=== PATIENT | female | born 1950 | race Caucasian/White ===

== ENCOUNTER 2024-05-01 22:03 | Inpatient (IN) | payer OTHER, SELFPAY ==
[2024-05-01 16:51] VITALS: BP 123/76
[2024-05-01 17:09] LABS: % Basophils 0.5 % (0-2); % Eosinophils 0.7 % (0-6); % Immature Granulocytes 0.5 % (0-0.5); % Lymphocytes 12.9 % (20.5-51.1); % Monocytes 6.8 % (1.7-9.3); % Neutrophils 78.6 % (42.2-75.2); Absolute Basophils 0.1 10^3/uL (0-0.2); Absolute Eosinophils 0.1 10^3/uL (0-0.7); Absolute Immature Granulocytes 0.1 10^3/uL (0-0.05); Absolute Lymphocytes 1.3 10^3/uL (1.2-3.4); Absolute Monocytes 0.7 10^3/uL (0.1-0.6); Absolute Neutrophils 7.8 10^3/uL (1.4-6.5); Hematocrit 36.7 % (37.0-47.0); Hemoglobin 12.8 g/dL (12.0-16.0); Mean Corp Hgb Conc. 34.9 g/dL (33.0-37.0); Mean Corpuscular Hgb 31.1 pg (27.0-31.0); Mean Corpuscular Volume 89.3 fL (81.0-99.0); Mean Platelet Volume 10.3 fL (7.4-10.4); Nucleated Red Blood Cells % 0 %; Platelet Count 376 10^3/uL (130-400); Red Blood Cell Count 4.11 10^6/uL (4.20-5.40); Red Cell Dist. Width 12.7 % (11.5-14.5); White Blood Cell Count 9.9 10^3/uL (4.8-10.8)
[2024-05-01 17:45] LABS: ALT (SGPT) 21 U/L (0-35); AST (SGOT) 23 U/L (14-36); Albumin 4.5 g/dl (3.5-5.0); Alkaline Phosphatase 138 U/L (38-126); Blood Urea Nitrogen 23 mg/dl (7-17); Calcium 9.9 mg/dl (8.4-10.2); Carbon Dioxide 28 mmol/L (22-30); Chloride 96 mmol/L (98-107); Glucose 187 mg/dl (70-99); Lipase 112 U/L (23-300); Potassium 3.8 mmol/L (3.5-5.1); Sodium 136 mmol/L (135-145); Total Bilirubin 0.5 mg/dl (0.2-1.3); Total Protein 7.7 g/dl (6.3-8.2); eGFR 39.73
[2024-05-01 18:33] VITALS: BMI 23.8
--- NOTE | 2024-05-01 18:36 | ED.GENMED ---
History of Present Illness
General
Chief Complaint: Bowel Problem
Time Seen by Provider: 05/01/24 18:05
Travel History
Have you had any contact with someone who has COVID-19?: No
Do you have any symptoms of coronavirus? Fever > 100 degrees, chills, cough, shortness of breath, sore throat, loss of taste or smell, muscle aches, or headache?: No
History of Present Illness
History of Present Illness:
73 yo female w/ hx of CKD, PAF on Eliquis, HTN, HLD, and IDDM presents to the Emergency Department for evaluation of lower abd pain radiating to the low back ongoing for the past 3-4 days. Saw her PCP Thursday, was felt to constipated, was given stool
softeners and an enema w/o relief. Pain not present currently. No reported fevers, chills, sweats, N/V. Notes that she has not passed formed stool for 1 week, only small amount of liquid. No recent medication changes, not on opiate meds
Past History
Past History
ED Past Medical History: Arrthythmia (Atrial fibrillation), COPD, HTN, Hypercholesterolemia, NIDDM, Hypothyroidism and Psychiatric (Anxiety, Depression)
ED Past Surgical History: Appendectomy
Social History
Tobacco: Former smoker
Alcohol: None
Personal:
Living: with family
Review of Systems
Review of Systems
Allergies reviewed?: Yes
All Other Systems: ROS reviewed and negative except as documented in HPI and ROS
Phy Exam
Physical Exam
Physical Exam:
GEN: Well appearing, NAD, WDWN
HEENT: Oral mucosa moist, no scleral icterus
Cardiac: Regular rate and rhythm 4/6 holosystolic murmur
Lung: No respiratory distress, no tachypnea
Abd: Soft, non tender x 4 quadrants
MSK: No gross deformity or injuries
Skin: Good color, no pallor or jaundice, no rashes
Neuro: AO x3, moves all extremities freely
Psych: Calm, cooperative
Course
Orders/Labs/Results
Orders:
Orders
05/01/24 17:01
CMP [Comprehensive Metabolic Panel] Urgent
Complete Blood Count/With Diff Urgent
Lipase Urgent
05/01/24 18:21
CT Abd/Pel (IV only)-DH only Urgent
Comment:
Reason For Exam: lower abd pain/constipation
05/01/24 19:42
Urinalysis Reflex To Culture Urgent
Date Specimen was Collected: 05/01/24
Time Specimen was Collected: 18:22
Urine Microscopic Reflex Cult Urgent
05/01/24 20:02
HYDROmorphone [Dilaudid] 0.5 mg IV NOW STA
05/01/24 20:06
Lactic Acid Urgent
05/01/24 21:29
Admit/Transfer Patient As Directed
Co-Sign Provider:
Level of Care: Inpatient admission
Assign to:: Telemetry
Physician / Group: Zeyad
Diagnosis: Sigmoid Volvulus
Reason for Telemetry: Arrhythmia
Date to Stop Telemetry: 05/04/24
Time to Stop Telemetry: 11:00
Reason for Hospitalization: Sigmoid decompression
Expected length of stay greater than two midnights?: Yes
ELOS- Estimated Length of Stay in days: 3
I certify the patient meets the requirements for IP care: Yes
05/01/24 21:43
Acetaminophen 1000MG/100Ml [Ofirmev] 1,000 mg in 100 ml IV ONCE
Acetaminophen IV Indication:: Ileus/Delayed Bowel Func.
HYDROmorphone [Dilaudid] 0.5 mg IV NOW STA
05/01/24 21:47
Code Status As Directed
Resuscitation Status: Full Code
05/04/24 11:00
DC Protocol for Telemetry ONCE
Abnormal Lab Results
05/01/24 05/01/24
17:01 19:42
RBC 4.11 L 10^6/uL
(4.20-5.40)
Hct 36.7 L %
(37.0-47.0)
MCH 31.1 H pg
(27.0-31.0)
Abs Immat Gran (auto) 0.1 H 10^3/uL
(0-0.05)
Absolute Neuts (auto) 7.8 H 10^3/uL
(1.4-6.5)
Absolute Monos (auto) 0.7 H 10^3/uL
(0.1-0.6)
Neutrophils % 78.6 H %
(42.2-75.2)
Lymphocytes % 12.9 L %
(20.5-51.1)
Chloride 96 L mmol/L
(98-107)
BUN 23 H mg/dl
(7-17)
Creatinine 1.4 H mg/dL
(0.6-1.0)
Glucose 187 H mg/dl
(70-99)
Alkaline Phosphatase 138 H U/L
(38-126)
Leukocyte Esterase Rfl Trace A
(Negative)
05/01/24 17:01
05/01/24 17:01
Vital Signs
Initial and Last Documented VS:
Initial Vital Signs
Temp Pulse Resp BP Pulse Ox
99.0 F 87 16 123/76 96
05/01/24 16:51 05/01/24 16:51 05/01/24 16:51 05/01/24 16:51 05/01/24 16:51
Last Documented Vital Signs
Temp Pulse Resp BP Pulse Ox
99.0 F 95 12 138/87 93
05/01/24 16:51 05/01/24 22:45 05/01/24 22:45 05/01/24 22:43 05/01/24 22:45
MDM/Problems Addressed
MDM/Problems Addressed:
73 yo female presents w/ difficulty moving bowels and abd distention, found to have sigmoid volvulus. Reassuringly she has no pneumatosis and lactic acid is normal. Case with d/w colorectal surgery as well as GI, GI will take pt for urgent
endoscopic decompression. Kcentra required to reverse anticoagulant effect of Eliquis. Will be admitted to hospitalist service for further management
*Critical Care Note
Total Time (30-74mins, 75-104mins- exclusive of procedures): 40 minutes
comment:
Critical care time: 40 mins
Critical care time was exclusive of: Separately billable procedures, treating other patients, and teaching time
Critical care was necessary to treat or prevent imminent or life-threatening deterioration of the following conditions: large bowel obstruction
Critical care time spent personally by me on the following activities:
[x] Review of old charts
[x] Obtaining history from patient or surrogate
[x] Ordering and review of the laboratory studies
[x] Ordering and review of radiographic studies
[x] Ordering and performing treatments and interventions
[x] Patient patient's response to treatment
[x] Development of treatment plan with patient or surrogate
[x] Discussion with consultants
Update Note
Update Note:
2029: hyaqu message sent to GI battery charger conveyor line for case review.
2038: hyaqu message sent to colorectal surgery. Surgeon battery charger conveyor line recommends urgent sigmoid decompression by GI tonlaine, will consult for definitive sigmoidectomy in the future
2055: Called back by GI, case reviewed. Will plan for urgent sigmoid decompression, will give Kcentra in anticipation of urgent procedure in the setting of Eliquis use.
ED Attending Note
-
Portions of this chart may have been created with voice recognition software.� Occasional wrong word or��sound alike� substitutions may have occurred due to the inherent limitations of voice recognition software.
Discharge Plan
Departure
Patient Disposition: Admit
Date of Disposition: 05/01/24
Time of Disposition: 21:00
Admit to: IMU
Presentation/result/management discussed w/ accepting MD/DO: Hospitalist
Discharge Problem:
Sigmoid volvulus
Interventions
Interventions:
*Risk Screen - Suicide Last Done: 05/01/24 18:34
*General Assessment Last Done: 05/01/24 18:34
*Neglect/Abuse Screening Last Done: 05/01/24 18:34
ED- Fall Risk Assessment Last Done: 05/01/24 18:33
*ED COVID-19 Vaccine History Last Done: 05/01/24 16:51
*Nursing Disposition Last Done: 05/01/24 23:00
OO-Lokvpm-Kytrewrbnx Assessment Last Done: 05/01/24 18:35
Discharge Date and Time
Discharge Date/Time: 05/01/24 23:01
[2024-05-01 19:52] LABS: Urine Albumin Trace (Neg - Trace); Urine Bilirubin Negative (Negative); Urine Character Clear (Clear); Urine Color Yellow; Urine Glucose Negative (Negative); Urine Ketone Negative (Negative); Urine Leukocyte Trace (Negative); Urine Nitrite Negative (Negative); Urine Occult Blood Negative (Negative); Urine Urobilinogen Negative (Neg - 1+)
[2024-05-01 20:03] LABS: Urine Red Blood Cell None Seen /HPF (0-2)
[2024-05-01] MEDS: DILAUDID 0.5 MG IV ×2 (20:10→21:51)
[2024-05-01 20:27] LABS: Lactic Acid 1.3 mmol/L (0.7-2.0)
[2024-05-01 21:03] VITALS: BP 137/96
[2024-05-01] MEDS: OFIRMEV 100 IV (21:51)
--- NOTE | 2024-05-01 21:55 | HPS.HSE ---
Addendum entered and electronically signed by Dominic Jeffers DO 05/01/24 23:00:
Patient seen and examined independently. Agree with findings and plan as set forth by Mariam Porter PA-C.
Patient is a 73y F with PMH significant for A-Fib, DM-II and CKD who presents to ED complaining of abdominal pain. Patient notes abdominal pain that has been present for about one week. She had been having difficulty moving her bowels and was
seen by her PCP and treated for constipation without improvement in her symptoms. Her last BM is now > 1 week ago. She presented to the ED today for evaluation and CT reveals evidence of sigmoid volvulus.
Ass:
Sigmoid Volvulus
Large Bowel Obstruction secondary to the above
Paroxysmal Atrial Fibrillation
Benign Hypertension
DM-II
CKD III
Hypothyroidism
Anxiety / Depression
Plan:
Admit for further evaluation and treatment.
To GI lab this evening for sigmoidoscopy and decompression.
GI / Colorectal Surgery evaluations.
Hold Eliquis acutely.
Resume other usual PO meds in AM if able.
Patient may require eventual sigmoid resection for definitive therapy.
Original Note:
Family Physician
-
Family Physician: Jere Luna
Chief Complaint
-
Abdominal Pain
History of Present Illness
This is a 73 year old female with past medical history of A-Fib on anticoagulation, DM and CKD who presents to the emergency department with abdominal pain. The patient reports she has had lower abdominal pain that radiates around her left side to
her buttocks for a week. She reports she went to her primary care physician on Thursday04/26/24 who treated her for constipation. She notes her last bowel movement was about a week and a half ago. She states she is only able to pass clear liquids.
The patient reports the pain comes and goes but notes today the pain was worsening, prompting her to present to the emergency department. The patient rates her pain at 7/10. She denies nausea and vomiting. Patient denies fever, sweats, and chills.
Medical History
Past Medical History
Past Medical History: Reports Other
Additional Past Medical History:
Paroxysmal Atrial Fibrillation
Essential Hypertension
Hyperlipidemia
Diabetes Mellitus, Type II
CKD Stage III
COPD
Hypothyroidism
Anxiety/Depression
Overactive Bladder
Past Surgical History: Reports Other
Additional Past Surgical History:
Appendectomy
Social History
Tobacco: Non-smoker
Alcohol: None
Drug: None
Family History
Family History: Not pertinent
Allergies / Home Medications
Allergies reflects when Allergies were last updated in [facility].
Home Medications with original date entered in [facility]
Allergy/Medication List:
Allergies
Allergy/AdvReac Type Severity Reaction Status Date / Time
amoxicillin Allergy Hives Verified 03/13/23 05:30
Penicillins Allergy Rash Verified 03/13/23 05:30
Home Medications
apixaban 5 mg tablet (Eliquis) 5 mg PO BID Arrhythmia 12/06/21
bupropion HCl 300 mg 24 hr tablet, extended release 300 mg PO DAILY Depression 12/06/21
diltiazem HCl 60 mg tablet 60 mg PO BID Arrhythmia 12/06/21
glimepiride 4 mg tablet 8 mg PO DAILY Diabetes 12/06/21
insulin glargine 100 unit/mL (3 mL) subcutaneous pen (Lantus Solostar U-100 Insulin) 6 units SC HS Diabetes 12/06/21
magnesium oxide 400 mg PO DAILY Supplement 12/06/21
mecobalamin (vitamin B12) 1,000 mcg chewable tablet (B12 Active) 1,000 mcg PO DAILY Supplement 12/06/21
simvastatin 20 mg tablet 20 mg PO QPM High cholesterol 12/06/21
sodium bicarbonate 650 mg tablet 650 mg PO BID Electrolyte Repletion 12/06/21
tolterodine 4 mg capsule,extended release 24 hr 4 mg PO DAILY Urinary issue ##0 12/06/21
ergocalciferol (vitamin D2) 1,250 mcg (50,000 unit) capsule 1,250 mcg PO PAYTON Supplement 10/30/22
levothyroxine 137 mcg tablet 127 mcg PO DAILY Thyroid 10/30/22
semaglutide 0.25 mg or 0.5 mg (2 mg/1.5 mL) subcutaneous pen injector (Ozempic) 0.5 mg SC PAYTON Diabetes 10/30/22
acetaminophen 325 mg tablet 650 mg (2 x 325 mg) PO Q6H PRN fever or pain 14 days #30 tabs 11/06/22
escitalopram oxalate 10 mg tablet (Lexapro) 20 mg PO DAILY 05/01/24
Review of Systems
-
A 12 point ROS was completed and negative except as noted: Yes
Constitutional: Denies Fever or Chills
Respiratory: Denies Cough or Trouble Breathing
Cardiac: Denies Chest Pain or Palpitations
Abdomen/GI: Reports See HPI
Physical Exam
Vital Signs
Vital Signs
Temp Pulse Resp BP Pulse Ox
99.0 F 90 12 137/96 91
05/01/24 16:51 05/01/24 21:30 05/01/24 21:30 05/01/24 21:03 05/01/24 21:30
Physical Exam
General: Well Developed, Well Nourished and Other (Appears in pain)
HEENT: Anicteric and Moist mucous membranes
Respiratory: Clear and Non Labored Respirations
Cardiac: S1/S2, Regular Rhythm and Murmur (III/ LAZARUS)
GI: Soft and Other (High pitched tinkling bowel sounds; Fullness noted in left lower quadrant; Moderate tenderness to palpation )
Musculoskeletal: No Clubbing, No Cyanosis and No Edema
Skin: Warm and Dry
Neuro: Awake, Alert, Oriented and Nonfocal/grossly intact
Laboratory Results
-
05/01/24 17:01
05/01/24 17:01
Laboratory Results
Lactic Acid 1.3 mmol/L (0.7-2.0) 05/01/24 20:06
Total Bilirubin 0.5 mg/dl (0.2-1.3) 05/01/24 17:01
AST 23 U/L (14-36) 05/01/24 17:01
ALT 21 U/L (0-35) 05/01/24 17:01
Alkaline Phosphatase 138 U/L (38-126) H 05/01/24 17:01
Lipase 112 U/L (23-300) 05/01/24 17:01
Data Reviewed
-
Lab Data: Labs Reviewed by me
Impression/Plan
-
Sigmoid Volvulus
-GI planning for urgent sigmoid depression this evening
-Consult Colorectal Surgery
-Continue NPO/IVFs
Paroxysmal Atrial Fibrillation
-Hold Eliquis for anticipated procedure
-Continue diltiazem for rate control
Essential Hypertension
-Continue diltiazem
Hyperlipidemia
-Hold simvastatin
Diabetes Mellitus, Type II
-Hold Lantus and Glimepiride
-Monitor sugars and continue coverage insulin
CKD Stage III
-Hold sodium bicarbonate
-Monitor creatinine and electrolytes
Hypothyroidism
-Hold levothyroxine
Anxiety/Depression
-Continue bupropion and escitalopram
DVT Proph: SCDs
Code Status: Full Code
[2024-05-01 22:00] VITALS: BP 154/93
[2024-05-01 22:30] LABS: Glucose - Point of Care 137 mg/dl (70-99)
[2024-05-01] MEDS: ZOFRAN 4 MG IV (22:41)
[2024-05-01 22:43] VITALS: BP 138/87
[2024-05-01] MEDS: KCENTRA 120 UNIT IV (22:52)
--- NOTE | 2024-05-01 23:09 | CON.GI ---
Consultation
-
Date/Time Consultation Requested: 05/01/2024
Date/Time Consultation Performed: 05/01/2024
Requesting Provider: ED
Performing Provider: Bhavesh HERNANDEZ
Reason for Consultation: sigmoid volvulus
Medical History
Chief Complaint / HPI
Chief Complaint: abdominal pain
History of Present Illness:
73y F with PMHx of A-Fib on eliquis , DM-II and CKD who presents to ED c/o of abdominal pain.poor historian. Patient has been having abdominal pain for one week. She had been having difficulty moving her bowels and was seen by her PCP and
treated for constipation .since pain is worsen today came to ED. vomited once prior to ED admission .
CT abd/ pel
IMPRESSION:
Findings consistent with sigmoid volvulus. No bowel wall thickening or pneumatosis. No inflammatory soft tissue stranding.
Past Medical History
Past Medical History: Other ( A-Fib on eliquis , DM-II and CKD)
Allergies / Home Medications
Allergy/AdvReac Type Severity Reaction Status Date / Time
amoxicillin Allergy Hives Verified 03/13/23 05:30
Penicillins Allergy Rash Verified 03/13/23 05:30
�Medication �Instructions �Recorded
apixaban 5 mg tablet (Eliquis) 5 mg PO BID Arrhythmia 12/06/21
bupropion HCl 300 mg 24 hr tablet, 300 mg PO DAILY Depression 12/06/21
extended release
diltiazem HCl 60 mg tablet 60 mg PO BID Arrhythmia 12/06/21
glimepiride 4 mg tablet 8 mg PO DAILY Diabetes 12/06/21
insulin glargine 100 unit/mL (3 6 units SC HS Diabetes 12/06/21
mL) subcutaneous pen (Lantus
Solostar U-100 Insulin)
magnesium oxide 400 mg PO DAILY Supplement 12/06/21
mecobalamin (vitamin B12) 1,000 1,000 mcg PO DAILY Supplement 12/06/21
mcg chewable tablet (B12 Active)
simvastatin 20 mg tablet 20 mg PO QPM High cholesterol 12/06/21
sodium bicarbonate 650 mg tablet 650 mg PO BID Electrolyte Repletion 12/06/21
tolterodine 4 mg capsule,extended 4 mg PO DAILY Urinary issue ##0 12/06/21
release 24 hr
ergocalciferol (vitamin D2) 1,250 1,250 mcg PO PAYTON Supplement 10/30/22
mcg (50,000 unit) capsule
levothyroxine 137 mcg tablet 127 mcg PO DAILY Thyroid 10/30/22
semaglutide 0.25 mg or 0.5 mg (2 0.5 mg SC PAYTON Diabetes 10/30/22
mg/1.5 mL) subcutaneous pen
injector (Ozempic)
acetaminophen 325 mg tablet 650 mg (2 x 325 mg) PO Q6H PRN 11/06/22
fever or pain 14 days #30 tabs
escitalopram oxalate 10 mg tablet 20 mg PO DAILY 05/01/24
(Lexapro)
Review of Systems
-
All other systems: A 12 pt ROS was Negative except as stated above in HPI
Vital Signs
Temp Pulse Resp BP Pulse Ox
99.0 F 95 12 138/87 93
05/01/24 16:51 05/01/24 22:45 05/01/24 22:45 05/01/24 22:43 05/01/24 22:45
Physical Exam
Exam
General: Well Developed
Respiratory: Clear
Cardiac: S1/S2
GI: Soft, Non Tender and Distended
Results
WBC 9.9 10^3/uL (4.8-10.8) 05/01/24 17:01
Hgb 12.8 g/dL (12.0-16.0) 05/01/24 17:01
Hct 36.7 % (37.0-47.0) L 05/01/24 17:01
MCV 89.3 fL (81.0-99.0) 05/01/24 17:01
Plt Count 376 10^3/uL (130-400) 05/01/24 17:01
Absolute Neuts (auto) 7.8 10^3/uL (1.4-6.5) H 05/01/24 17:01
Sodium 136 mmol/L (135-145) 05/01/24 17:01
Potassium 3.8 mmol/L (3.5-5.1) 05/01/24 17:01
Chloride 96 mmol/L (98-107) L 05/01/24 17:01
Carbon Dioxide 28 mmol/L (22-30) 05/01/24 17:01
BUN 23 mg/dl (7-17) H 05/01/24 17:01
Creatinine 1.4 mg/dL (0.6-1.0) H 05/01/24 17:01
Calcium 9.9 mg/dl (8.4-10.2) 05/01/24 17:01
Total Bilirubin 0.5 mg/dl (0.2-1.3) 05/01/24 17:01
AST 23 U/L (14-36) 05/01/24 17:01
ALT 21 U/L (0-35) 05/01/24 17:01
Alkaline Phosphatase 138 U/L (38-126) H 05/01/24 17:01
Lipase 112 U/L (23-300) 05/01/24 17:01
Diagnostic Image Results: CT abd/ pel
IMPRESSION:
Findings consistent with sigmoid volvulus. No bowel wall thickening or pneumatosis. No inflammatory soft tissue stranding.
Prior GI Procedures:
EGD:
Colonoscopy:
as per patient 1 yr ago in [place] - hx of colon polyps
Assessment / Plan
-
73 y/o female admitted with abdominal pain/ constipation . CT abd/ pel in ED - showing sigmoid volvulus. last colonoscopy 1 yra back in [place] as per patient - reassured. no prior volvulus . hx of afib and took eliquis today.
--sigmoid volvulus
plan
Kcentra was given in ED to reverse anticoagulation effect
urgent flexible sigmoidoscopy with decompression tonight
colorectal surgical eval
Total Time Spent with Patient (in minutes): 55
-
-
Thank you for consultation and allowing me to participate in the patient's care. Please call the environmental associate GI physician during the after hours with any questions or concerns.
[2024-05-02] VITALS (10 sets, daily range): BP systolic 107–139; BP diastolic 60–83; PULSE 86; O2SAT 93; BMI 24.0
[2024-05-02] MEDS: NSS 1000 IV (01:04)
--- NOTE | 2024-05-02 01:53 | PTCARENOTE ---
Addendum entered by Anushka Tinajero RN 05/02/24 01:56:
02 @ 2 liters placed on patient due to deep sleep and pulse ox @ 87% on room air.
Original Note:
Patient arrived to unit via stretcher from GI lab around 00:30 with dx of Sigmoid Volvulus. Patient coming from Flexible Sigmoidoscopy. Decompression tube in place with no output. Per GI lab there was no output to begin with. Patient drowsy but
coherent and able to answer questions with the help of daughter at bedside. Patient denies pain or discomfort stating ' I feel so much better!' Oriented to unit. Call woods within reach. Vitals stable.
[2024-05-02] MEDS: SYNTHROID 137 MCG PO (05:51)
[2024-05-02 06:06] LABS: Glucose - Point of Care 109 mg/dl (70-99)
[2024-05-02 07:02] LABS: Hematocrit 32.4 % (37.0-47.0); Hemoglobin 11.2 g/dL (12.0-16.0); Mean Corp Hgb Conc. 34.6 g/dL (33.0-37.0); Mean Corpuscular Volume 89.8 fL (81.0-99.0); Mean Platelet Volume 10.6 fL (7.4-10.4); Platelet Count 331 10^3/uL (130-400); Red Blood Cell Count 3.61 10^6/uL (4.20-5.40); Red Cell Dist. Width 12.6 % (11.5-14.5); White Blood Cell Count 10.4 10^3/uL (4.8-10.8)
[2024-05-02 07:50] LABS: Blood Urea Nitrogen 23 mg/dl (7-17); Calcium 9.2 mg/dl (8.4-10.2); Carbon Dioxide 27 mmol/L (22-30); Chloride 99 mmol/L (98-107); Estimated Creatinine Clearance 32 ml/min; Glucose 92 mg/dl (70-99); Magnesium 2.5 mg/dl (1.6-2.3); Potassium 3.6 mmol/L (3.5-5.1); Sodium 136 mmol/L (135-145); eGFR 39.73
--- NOTE | 2024-05-02 08:48 | W.PN.HOSP.TC ---
Today's Communication/Plan
-
CLD and advance as tolerated. Surgery eval.
Assessment / Plan
Assessment / Plan
Physical exam:
General: Well Developed, Well Nourished and No Apparent Distress
HEENT: Normocephalic, Atraumatic and Moist Mucous Membranes
Respiratory: Clear to Auscultation; Negative Wheezes, Rales or Rhonchi
Cardiac: Regular Rhythm and S1/S2
GI: Soft, Nontender and Nondistended
Musculoskeletal: No Clubbing, No Cyanosis and No Edema
Neuro: Awake, Alert and Oriented
Psych: Calm
A/P:
Sigmoid Volvulus
-GI planning did urgent sigmoid depression last evening. Self removed rectal tube and GI ok to keep out.
-Consult Colorectal Surgery--> likely surgery as OP
-CLD advance to Full Liquid
Discussed with family at bedside
Paroxysmal Atrial Fibrillation
-Resume Eliquis since no further surgery for now
-Continue diltiazem for rate control
Essential Hypertension
-Continue diltiazem
Hyperlipidemia
-Restart simvastatin
Diabetes Mellitus, Type II
-Resume Lantus lower dose (half) and up-titrate and cont hold Glimepiride until eating bettter
-Monitor sugars and continue coverage insulin
CKD Stage III
-Resume sodium bicarbonate
-Monitor creatinine and electrolytes
Hypothyroidism
-Resume levothyroxine
Anxiety/Depression
-Continue bupropion and escitalopram
DVT Proph: SCDs
Code Status: Full Code
Anticipated Discharge: 24 - 48 hours
Subjective/Interval History
-
Date of Service: May 02, 2024
pte doing better overall, no abd pain
Objective Data
-
Labs:
Laboratory Results
05/02/24
06:03
WBC 10.4
Hgb 11.2 L
Hct 32.4 L
Plt Count 331
Sodium 136
Potassium 3.6
Chloride 99
Carbon Dioxide 27
BUN 23 H
Creatinine 1.4 H
Glucose 92
Calcium 9.2
Vital Signs:
Vital Signs
Temp Pulse Resp BP Pulse Ox
97.8 F 95 18 134/68 98
05/02/24 03:35 05/02/24 03:35 05/02/24 03:35 05/02/24 03:35 05/02/24 03:35
I&O
05/01/24 05/02/24 05/03/24
06:59 06:59 06:59
Intake Total 400 / 400
Balance 400 / 400
[2024-05-02] MEDS: WELLBUTRIN XL (24 hour extended release) 300 MG PO (10:06)
[2024-05-02] MEDS: LEXAPRO 20 MG PO (10:06)
[2024-05-02 10:16] LABS: Glycohemoglobin (HgbA1c) 7.4 % (4.0-5.6)
[2024-05-02 12:45] LABS: Glucose - Point of Care 116 mg/dl (70-99)
--- NOTE | 2024-05-02 12:45 | CON.GS ---
Addendum entered and electronically signed by Rodrigo Morris MD 05/02/24 14:20:
I saw and examined the patient independently.
The Building Superintendent's note was reviewed and I agree with the note, assessment and plan except where noted below.
Comment: This is a 73-year-old female with a history of A-fib on Eliquis who presents with 1 week history of abdominal pain and patient evaluated in our ED found to have a sigmoid volvulus on CT status post emergent and successful sigmoidoscopy with
decompression and rectal tube placement yesterday by gastroenterology.
As this is her first episode of volvulus, no urgent surgical intervention reoccurs warranted at this time.
I explained to the patient as well as her daughters who accompanied her at the bedside that if this were to recur, we would again plan for sigmoidoscopy decompression followed by a bowel prep and then sigmoidectomy but will hold off for now. She is
up-to-date on her colonoscopy. Patient and family agreeable to plan, all questions answered.
Okay for p.o. diet, advance as tolerated.
Okay for anticoagulation from surgery perspective.
General surgery will sign off for now, please call with any questions or concerns.
Original Note:
Consultation
-
Requesting Provider: German
Performing Provider: Gabriele Morris
Reason for Consultation: sigmoid volvulus
Medical History
-
Chief Complaint: abdominal pain
History of Present Illness:
Ms. Lisa is a 73 yo female with a history of afib on eliquis (LD 05/01 8am), COPD, NIDDM and appendectomy who presents with abdominal pain and inability to pass stools for the past week. She was evaluated by her pcp and started on bowel regimen
but her pain became worse and only small amounts of liquid were passing rectally causing her to present for further evaluation. She had episode of nausea and vomiting in the ED which she attributes to pain. She denies fevers or chills. At baseline,
she notes no difficulty passing stools and has regular bm's. She denies prior episodes similar to this in the past. She follows regularly at [place] with Dr. Cisneros for routine colonoscopies and her last one was in 2022 with polpys removed at that
time. On admission, CT findings showed sigmoid volvulus and she was administered kcentra and taken emergently for sigmoidoscopy with successful decompression. She notes complete relief in pain. She is nontender and without distention on exam.
Past Medical History
Past Medical History: Arrhythmias (AFib on Eliquis (05/01)), COPD, Hypothyroidism, NIDDM and Renal Failure (CKD)
Past Surgical History: Appendectomy and Gynecological (tubal ligation)
Social History
Tobacco: Non-Smoker
Alcohol: None
Family History
Family History: Reviewed & Not Pertinent and Cancer (Father with colon CA, Maternal Gm with colon ca)
Allergies / Home Medications
Allergy/AdvReac Type Severity Reaction Status Date / Time
amoxicillin Allergy Hives Verified 03/13/23 05:30
Penicillins Allergy Rash Verified 03/13/23 05:30
�Medication �Instructions �Recorded �Confirmed �Type
apixaban 5 mg tablet (Eliquis) 5 mg PO BID Arrhythmia 12/06/21 05/01/24 History
bupropion HCl 300 mg 24 hr tablet, 300 mg PO DAILY Depression 12/06/21 05/01/24 History
extended release
diltiazem HCl 60 mg tablet 60 mg PO BID Arrhythmia 12/06/21 05/01/24 History
glimepiride 4 mg tablet 8 mg PO DAILY Diabetes 12/06/21 05/01/24 History
insulin glargine 100 unit/mL (3 6 units SC HS Diabetes 12/06/21 05/01/24 History
mL) subcutaneous pen (Lantus
Solostar U-100 Insulin)
magnesium oxide 400 mg PO DAILY Supplement 12/06/21 05/01/24 History
mecobalamin (vitamin B12) 1,000 1,000 mcg PO DAILY Supplement 12/06/21 05/01/24 History
mcg chewable tablet (B12 Active)
simvastatin 20 mg tablet 20 mg PO QPM High cholesterol 12/06/21 05/01/24 History
sodium bicarbonate 650 mg tablet 650 mg PO BID Electrolyte Repletion 12/06/21 05/01/24 History
tolterodine 4 mg capsule,extended 4 mg PO DAILY Urinary issue ##0 12/06/21 05/01/24 History
release 24 hr
ergocalciferol (vitamin D2) 1,250 1,250 mcg PO PAYTON Supplement 10/30/22 05/01/24 History
mcg (50,000 unit) capsule
levothyroxine 137 mcg tablet 137 mcg PO DAILY Thyroid 10/30/22 05/02/24 History
semaglutide 0.25 mg or 0.5 mg (2 0.5 mg SC PAYTON Diabetes 10/30/22 05/01/24 History
mg/1.5 mL) subcutaneous pen
injector (Ozempic)
acetaminophen 325 mg tablet 650 mg (2 x 325 mg) PO Q6H PRN 11/06/22 05/01/24 Rx
fever or pain 14 days #30 tabs
escitalopram oxalate 10 mg tablet 20 mg PO DAILY Depression 05/01/24 05/01/24 History
(Lexapro)
Review of Systems
-
History Source: Patient and Family
All other systems: Negative unless noted
A 10 point review of systems was completed, and was negative except as per HPI.
Physical Exam
Vital Signs
Temp Pulse Resp BP Pulse Ox
97.8 F 85 18 118/69 95
05/02/24 03:35 05/02/24 10:05 05/02/24 10:05 05/02/24 10:05 05/02/24 10:05
05/01/24 05/02/24 05/03/24
06:59 06:59 06:59
Actual Weight 65.317 kg
Body Mass Index (BMI) 24.0
Lab Results
05/02/24 06:03
05/02/24 06:03
WBC 10.4 10^3/uL (4.8-10.8) 05/02/24 06:03
Hgb 11.2 g/dL (12.0-16.0) L 05/02/24 06:03
Hct 32.4 % (37.0-47.0) L 05/02/24 06:03
Plt Count 331 10^3/uL (130-400) 05/02/24 06:03
Abs Immat Gran (auto) 0.1 10^3/uL (0-0.05) H 05/01/24 17:01
Neutrophils % 78.6 % (42.2-75.2) H 05/01/24 17:01
Physical Exam
General: Well Developed
HEENT: Moist Mucous Membranes
Respiratory: Non Labored Respirations
GI: Soft, Non Tender and Non Distended
Skin: Warm and Dry
Neuro: Awake, Alert and AO x 3
Psych: Calm
Data Reviewed
-
CT Scan: Image Personally Visualized and interpreted, Report Reviewed by me, Discussed with Physician, Discussed with Patient and Discussed with Family
Labs: Labs Reviewed by me, Discussed with Physician, Discussed with Patient and Discussed with Family
Assessment / Plan
-
73 yo female with h/o afib on Eliquis, appi, and copd presenting with sigmoid volvulus s/p sigmoidoscopy for decompression by gastroenterology. F/U XR with improvement s/p decompression. AFVSS. Labs stable from admission with slight downtrend in
h/h. She is symptom free currently with rectal tube in place for decompression.
Given successful decompression, no plans for emergent surgery at this time. Given the high rate of recurrence would recommend eventual surgical resection of the affected sigmoid colon, timing TBD. Tentatively planning for the outpatient setting
after she recovers from this episode vs as an inpatient prior to discharge after bowel fully decompressed, Eliquis washout and bowel able to be prepped for surgery. Patient and daughter leaning toward scheduled procedure in the outpatient setting.
--Trial of clears
--Rectal tube as per GI
[2024-05-02] MEDS: CARDIZEM PO ×2 (13:00→21:18)
--- NOTE | 2024-05-02 15:33 | CM ---
[employer] account manager reviewed patient's chart and met with patient and patient lives with her daughter and grandson in a 2 story home, 3 steps to enter, patient is independent with adl's and uses a walker with ambulation, Patient has a prescription plan and
uses [facility] pharmacy.
PCP: Dr. Luna
Plan; Home when stable no needs.
--- NOTE | 2024-05-02 15:43 | PTCARENOTE ---
Patient tolerating clear liquid lunch. Having loose BM in bathroom, during which rectal tube became dislodged, doubling back so that tip is visible. GI on floor, instructing RN to remove tube. Tolerated by patient. Dr. West and Dr. Bates
notified.
--- NOTE | 2024-05-02 16:21 | W.PN.GI.CBS2 ---
Today's Communication / Plan
-
low residual diet
bowel regimen
follow up with colorectal surgery
Assessment / Plan
-
73 y/o female admitted with abdominal pain/ constipation . CT abd/ pel in ED - showing sigmoid volvulus. last colonoscopy 1 yra back in [place] as per patient - reassured. no prior volvulus . hx of afib and took eliquis today.
--sigmoid volvulus -s/p flex sig with decompression 05/01/2024. Repeat x-ray this a.m-significant improvement
plan
Patient currently having bowel movement around decompression tube and tube is being dislodged. Okay to remove the decompression tube
Advised on daily bowel regimen on discharge-Metamucil/MiraLAX/Colace
Low residual diet
ok to resume AC
Surgical note reviewed-no surgical intervention on this admission
Advised to follow-up with colorectal surgery as outpatient
Advised to follow-up with GI at [place]
will s/o
Total Time Spent with Patient (in minutes): 35
Subjective
Subjective
Date of Service: May 02, 2024
Feeling better. Denies any abdominal pain/nausea/vomiting. Having bowel movements.
Objective
Data Reviewed
Laboratory Data:
Laboratory Results
05/02/24 06:03
05/02/24 06:03
Laboratory Results
Magnesium 2.5 mg/dl (1.6-2.3) H 05/02/24 06:03
Total Bilirubin 0.5 mg/dl (0.2-1.3) 05/01/24 17:01
AST 23 U/L (14-36) 05/01/24 17:01
ALT 21 U/L (0-35) 05/01/24 17:01
Alkaline Phosphatase 138 U/L (38-126) H 05/01/24 17:01
Lipase 112 U/L (23-300) 05/01/24 17:01
Vital Signs and I&O:
Vital Signs
Temp Pulse Resp BP Pulse Ox
98.7 F 89 18 120/60 94
05/02/24 16:00 05/02/24 16:00 05/02/24 16:00 05/02/24 16:00 05/02/24 16:00
I&O
05/01/24 05/02/24 05/03/24
06:59 06:59 06:59
Intake Total 400 / 400
Balance 400 / 400
Physical Exam
Physical Exam
GI: Soft, Non Distended and Non Tender
[2024-05-02 17:14] LABS: Glucose - Point of Care 283 mg/dl (70-99)
[2024-05-02] MEDS: MIRALAX 17 GRAMS PO (17:39)
[2024-05-02] MEDS: NOVOLOG FLEXPEN-MODERATE RESISTANCE 5 UNITS SC (17:40)
[2024-05-02] MEDS: LIPITOR 10 MG PO (17:40)
[2024-05-02] MEDS: ELIQUIS 5 MG PO (21:18)
[2024-05-02] MEDS: COLACE 100 MG PO (21:18)
[2024-05-02] MEDS: SODIUM BICARBONATE 650 MG PO (21:18)
[2024-05-02 22:13] LABS: Glucose - Point of Care 83 mg/dl (70-99)
[2024-05-02] MEDS: LANTUS 0.0299999999999999989 UNITS SC (22:34)
[2024-05-03 03:45] VITALS: BP 126/71
[2024-05-03 05:23] VITALS: BMI 24.3
[2024-05-03] MEDS: SYNTHROID 137 MCG PO (05:47)
[2024-05-03 07:40] VITALS: BP 123/63
[2024-05-03 08:01] LABS: Glucose - Point of Care 84 mg/dl (70-99)
[2024-05-03 08:22] LABS: Hematocrit 33.4 % (37.0-47.0); Hemoglobin 11.4 g/dL (12.0-16.0); Mean Corp Hgb Conc. 34.1 g/dL (33.0-37.0); Mean Corpuscular Hgb 31.7 pg (27.0-31.0); Mean Corpuscular Volume 92.8 fL (81.0-99.0); Platelet Count 325 10^3/uL (130-400); Red Cell Dist. Width 12.7 % (11.5-14.5); White Blood Cell Count 10.6 10^3/uL (4.8-10.8)
[2024-05-03] MEDS: NOVOLOG FLEXPEN-MODERATE RESISTANCE SC ×2 (08:49→16:52)
[2024-05-03] MEDS: WELLBUTRIN XL (24 hour extended release) 300 MG PO (08:53)
[2024-05-03] MEDS: SODIUM BICARBONATE 650 MG PO (08:53)
[2024-05-03] MEDS: DETROL LA 4 MG PO (08:53)
[2024-05-03] MEDS: VITAMIN B-12 1000 MCG PO (08:54)
[2024-05-03] MEDS: CARDIZEM 60 MG PO (08:54)
[2024-05-03] MEDS: ELIQUIS 5 MG PO (08:54)
[2024-05-03] MEDS: LEXAPRO 20 MG PO (08:54)
--- NOTE | 2024-05-03 09:04 | W.PN.HOSP.TC ---
Today's Communication/Plan
-
d/c planning
Assessment / Plan
Assessment / Plan
Physical exam:
General: Well Developed, Well Nourished and No Apparent Distress
HEENT: Normocephalic, Atraumatic and Moist Mucous Membranes
Respiratory: Clear to Auscultation; Negative Wheezes, Rales or Rhonchi
Cardiac: Regular Rhythm and S1/S2
GI: Soft, Nontender and Nondistended
Musculoskeletal: No Clubbing, No Cyanosis and No Edema
Neuro: Awake, Alert and Oriented
Psych: Calm
A/P:
Sigmoid Volvulus
-GI planning did urgent sigmoid depression. Self removed rectal tube and GI ok to keep out.
-Consult Colorectal Surgery--> likely surgery as OP
-Low residue diet now
Discussed with family at bedside yesterday
Plan d/c today
Paroxysmal Atrial Fibrillation
-Resume Eliquis since no further surgery for now
-Continue diltiazem for rate control
Hypokalemia
replete and trend
Hyponatremia
f/u OP
Essential Hypertension
-Continue diltiazem
Hyperlipidemia
-Restart simvastatin
Diabetes Mellitus, Type II
-Resume Lantus lower dose (half) and up-titrate and cont hold Glimepiride until eating bettter
-Monitor sugars and continue coverage insulin
CKD Stage III
-Resume sodium bicarbonate
-Monitor creatinine and electrolytes
Hypothyroidism
-Resume levothyroxine
Anxiety/Depression
-Continue bupropion and escitalopram
DVT Proph: SCDs
Code Status: Full Code
Anticipated Discharge: Today
Subjective/Interval History
-
Date of Service: May 03, 2024
pte feel well. had some episodes bowel incontinence/diarrhea-gi aware.
Objective Data
-
Labs:
Laboratory Results
05/03/24
07:19
WBC 10.6
Hgb 11.4 L
Hct 33.4 L
Plt Count 325
Sodium Pending
Potassium Pending
Chloride Pending
Carbon Dioxide Pending
BUN Pending
Creatinine Pending
Glucose Pending
Calcium Pending
Vital Signs:
Vital Signs
Temp Pulse Resp BP Pulse Ox
99.1 F 87 17 123/63 95
05/03/24 07:40 05/03/24 07:40 05/03/24 07:40 05/03/24 07:40 05/03/24 07:40
I&O
05/02/24 05/03/24 05/04/24
06:59 06:59 06:59
Intake Total 400 / 400 1120 / 1120
Balance 400 / 400 1120 / 1120
[2024-05-03 09:05] LABS: Blood Urea Nitrogen 20 mg/dl (7-17); Calcium 8.7 mg/dl (8.4-10.2); Carbon Dioxide 28 mmol/L (22-30); Chloride 98 mmol/L (98-107); Estimated Creatinine Clearance 35 ml/min; Glucose 65 mg/dl (70-99); Potassium 3.2 mmol/L (3.5-5.1); Sodium 134 mmol/L (135-145); eGFR 43.42
[2024-05-03] MEDS: COLACE PO (09:16)
[2024-05-03] MEDS: MIRALAX PO (09:16)
[2024-05-03] MEDS: KCL 270 MEQ IV (10:57)
[2024-05-03 11:05] LABS: Glucose - Point of Care 327 mg/dl (70-99)
[2024-05-03 11:26] VITALS: BP 103/53
[2024-05-03] MEDS: NOVOLOG FLEXPEN-MODERATE RESISTANCE 7 UNITS SC (11:35)
--- NOTE | 2024-05-03 13:00 | W.DCSUMMARY ---
Discharge Summary
Discharge Data
Date of Admission: 05/01/24
Date of Discharge: 05/03/24
-
Pending Results: No
Hospital Course
Patient 73 years old female history of A-fib, diabetes mellitus, CKD presented to the hospital abdominal pain and found to have sigmoid volvulus. Patient was reversed with Kcentra in the ER and GI and surgery consulted. GI did an urgent flexible
sigmoidoscopy with decompression. Patient did well and was placed on bowel regimen. Surgery saw the patient the following day. Surgery recommended conservative management but if this were to occur then after sigmoidoscopy decompression she will
then need bowel prep and sigmoidectomy. She was placed back on her anticoagulation and tolerated well. Patient otherwise hemodynamically stable and feels back to her baseline. She will be discharged in stable condition today.
Discharge duration: 36 minutes
Discharge Plan
-
Patient Disposition: Home (Routine Discharge)
Discharge Diagnosis/Procedures: Sigmoid volvulus. Hypokalemia. Paroxysmal Atrial Fibrillation.
Diet: Low Cholesterol
Activity: As tolerated
Blood Work: PCP to order CBC, BMP within 1 week
Referrals:
Howard Young MD [Active] - in two to four weeks
Rodrigo Morris MD [Active] - in one week
Jere Luna DO [Family Provider] - in less than 1 week
Prescriptions:
New
polyethylene glycol 3350 [HealthyLax] 17 gram Powder In Packet
17 g PO DAILY Qty: 14 0RF
Rx Instructions:
Please hold if diarrhea.
Continued
tolterodine 4 mg Capsule,Extended Release 24hr
4 mg PO DAILY Qty: 0
sodium bicarbonate 650 MG tablet
650 mg PO BID
simvastatin 20 MG tablet
20 mg PO QPM
glimepiride 4 MG tablet
8 mg PO DAILY
diltiazem HCl 60 MG tablet
60 mg PO BID
bupropion HCl 300 MG tablet extended release 24 hr
300 mg PO DAILY
insulin glargine [Lantus Solostar U-100 Insulin] 300 UNITS/3 ML insulin pen
6 units SC HS
Eliquis 5 MG tablet
5 mg PO BID
Hold Instructions: Resume on 11/01/22.
mecobalamin (vitamin B12) [B12 Active] 1,000 MCG tablet,chewable
1,000 mcg PO DAILY
magnesium oxide 200 MG tablet
400 mg PO DAILY
levothyroxine 137 mcg tablet
137 mcg PO DAILY
ergocalciferol (vitamin D2) 1,250 mcg (50,000 unit) capsule
1,250 mcg PO PAYTON
Ozempic 0.25 mg or 0.5 mg(2 mg/1.5 mL) pen injector
0.5 mg SC PAYTON
acetaminophen 325 mg Tablet
650 mg PO Q6H PRN (Reason: fever or pain) 14 Days Qty: 30 0RF
escitalopram oxalate [Lexapro] 10 mg Tablet
20 mg PO DAILY
Discharge Orders:
Discharge Patient (As Directed); Ordered 05/03/24
Ordered By: Francisco West
Discharge Date and Time
Discharge Date/Time: 05/03/24 20:25
Print Language: NAMIBIAN
--- NOTE | 2024-05-03 14:05 | CM ---
Chart reviewed and patient is for home today no needs.
Plan; Home with family no needs.
[2024-05-03 15:38] VITALS: BP 103/52
[2024-05-03 16:29] LABS: Glucose - Point of Care 116 mg/dl (70-99)
[2024-05-03] MEDS: LIPITOR 10 MG PO (16:53)
[2024-05-03 19:00] VITALS: BP 135/75
== END 2024-05-03 20:25 | disposition home or self-care (01) | DRG 389 ==
LOC: 4 WEST ACU 22:03
PROVIDERS: Emergency Medicine; Physician Assistant; Physician Assistant Medical; ADMITTING PHYSICIAN Hospitalist; ATTENDING PHYSICIAN Hospitalist; CONSULT PHYSICIAN Internal Medicine Gastroenterology; EMERGENCY PHYSICIAN Emergency Medicine; FAMILY PHYSICIAN Family Medicine; OTHER PHYSICIAN Surgery
PROC: 0D9N80Z Drainage of Sigmoid Colon with Drainage Device, Via Natural or Artificial Opening Endoscopic (ICD-10-PCS; 2024-05-01)
PROC: 30283B1 Transfusion of Nonautologous 4-Factor Prothrombin Complex Concentrate into Vein, Percutaneous Approach (ICD-10-PCS; 2024-05-01)
DX: K56.2 Volvulus (principal); E87.1 Hypo-osmolality and hyponatremia; N18.30 Chronic kidney disease, stage 3 unspecified; I48.0 Paroxysmal atrial fibrillation; E11.22 Type 2 diabetes mellitus with diabetic chronic kidney disease; E87.6 Hypokalemia; I12.9 Hypertensive chronic kidney disease with stage 1 through stage 4 chronic kidney disease, or unspecified chronic kidney disease; E78.00 Pure hypercholesterolemia, unspecified; J44.9 Chronic obstructive pulmonary disease, unspecified; E03.9 Hypothyroidism, unspecified; F32.A Depression, unspecified; F41.9 Anxiety disorder, unspecified; N32.81 Overactive bladder; Z79.01 Long term (current) use of anticoagulants; Z79.4 Long term (current) use of insulin; Z87.891 Personal history of nicotine dependence; Z86.010 Personal history of colon polyps
CPT/HCPCS: 74018; 74177; 80048; 80053; 81003; 81015; 82962; 83036; 83605; 83690; 83735; 85025; 85027; 96374; 97163; 97166; 99291; J7168; Q9967